=== PATIENT | male | born 1955 | race Caucasian/White ===

== ENCOUNTER 2020-12-14 14:11 | Emergency (ER) | payer OTHER, SELFPAY ==
[2020-12-14] VITALS (10 sets, daily range): BP systolic 148–232; BP diastolic 73–89; PULSE 56–62; RESP 16–22; TEMP 36.7; O2SAT 95–99; BMI 35.2
--- NOTE | 2020-12-14 14:47 | ECG_ITS ---
[facility] Test Date: 2020-12-14 Pat Name: Edgar Warren Department: Room: Gender: Male Telephone Sales Agent: : 1955 Requested By: Berta Wetzel I Order Number: [id number] Reading MD: BRENDEN GUPTA Measurements Intervals [place] Rate: 55 P: 49 RI: 147 QRS: 28 QRSD: 85 T: 65 QT: 397 QTc: 382 Interpretive Statements SINUS BRADYCARDIA No previous ECG available for comparison Electronically Signed On 12-14-2020 19:52:43 COURIER by BRENDEN GUPTA [id number]
--- NOTE | 2020-12-14 16:06 | PC.NURSE ---
PT UDATED ON WAIT AT THIS TIME
--- NOTE | 2020-12-14 16:55 | W.ED.CHESTPA ---
HPI - Chest Pain General: Chief Complaint: Chest Pain Stated Complaint: HEART PALPATATION Time Seen by Provider: 12/14/20 16:46 Source: patient Mode of arrival: ambulatory Limitations: no limitations History of Present Illness: HPI narrative: Patient is a 65-year-old male with a history of hypothyroidism, hypertension who presents to the emergency department with a sensation of skipped heartbeats. May also have some palpitations. He denies any chest pain, difficulty breathing, fever, headache. He went to his PCPs office today and his blood pressure was significantly elevated in the 200s so he was sent here to be seen. He has baseline blood pressure according to the patient is in the 1 teens systolic. Onset (ago): day(s) (1) Associated symptoms: Reports palpitations; Deny abdominal pain, dyspnea, fever(s), nausea or vomiting Review of Systems General: Reports: 10 or more systems reviewed and unremarkable except in HPI and below Const: Denies: fever(s), chills or body aches Eyes: Denies: change in vision or blurry vision ENMT: Denies: throat pain, enlarged tonsils, odynophagia, hoarseness, mouth pain or swelling of lips/tongue Card: Reports: palpitations; Denies: chest pain, irregular heart rhythm, edema or swelling of feet/ankles Resp: Denies: dyspnea, productive cough or non-productive cough GI: Denies: abdominal pain, nausea or vomiting : Denies: flank pain, dysuria, urinary frequency, urinary urgency or urinary hesitancy Musc: Denies: neck pain, back pain or extremity swelling Skin/Breast: Denies: rash, pruritus or erythema Neuro: Denies: headache(s), numbness in extremities or weakness in extremities Endo: Denies: polyuria, polydipsia or tired all the time Physical Exam Const: COMMON NORMALS: no acute distress, average body habitus, patient oriented x3, no limitations, healthy appearing, alert and well nourished Neck/C-Spine: COMMON NORMALS: full ROM, supple, no meningeal signs, no JVD and No carotid bruits Resp: COMMON NORMALS: normal respiratory effort, No retractions, No use of accessory muscles, clear to auscultation bilaterally and percussion normal AUSCULTATION: clear to auscultation bilaterally PERCUSSION: percussion normal Cardio: COMMON NORMALS: no JVD, regular rate, regular rhythm, S1 normal heart sound present, S2 normal heart sound present, No gallops present (Cardio), No clicks present (Cardio), No murmurs present (Cardio), No rub (Cardio) and Peripheral pulses 2+ throughout RATE: regular rate RHYTHM: regular rhythm HEART SOUNDS: S1 normal heart sound present and S2 normal heart sound present PERIPHERAL PULSES: Peripheral pulses 2+ throughout GI: COMMON NORMALS: Normal to inspection, nondistended, normoactive bowel sounds present, Soft to palpation, non-tender, No hepatosplenomegaly present, no masses and no bruits PALPATION: Yes Soft to palpation and Yes No hepatosplenomegaly present Extremity: COMMON NORMALS: normal to inspection, full ROM, capillary refill normal, no calf tenderness and no pedal edema Neuro: COMMON NORMALS: patient oriented x3 SENSORIUM/ORIENTATION: Yes alert MENINGEAL SIGNS: Yes no meningeal signs Skin: COMMON NORMALS: no rashes or lesions noted, no wounds, turgor normal, no jaundice, no petechiae and no mottling GENERAL SKIN EXAM: no rashes or lesions noted and turgor normal Course Reevaluation(s): Reevaluation #1: 65-year-old male who presents to the emergency department with palpitations. He has a history of hypothyroidism and is on levothyroxine. Evaluation in the emergency department was negative for cardiac cause of his symptoms with a negative high-sensitivity troponin x2. His TSH was significantly elevated so the dose of his levothyroxine is increased. Neurontin was increased was about 6 months ago. He has an appointment with him primary care provider in a few days. He will follow-up with her. He voiced understanding and is in agreement with the plan. Time: 20:21 Vital Signs: Vital signs: Vital Signs Temperature 98.1 F 12/14/20 14:24 Pulse Rate 60 12/14/20 21:26 Respiratory Rate 20 H 12/14/20 21:26 Blood Pressure 153/89 12/14/20 21:26 Pulse Oximetry 99 12/14/20 21:26 MDM - Chest Pain MDM Narrative: Medical decision making narrative: 65-year-old male who presents to the emergency department with palpitations. Evaluation in the emergency department shows his hypothyroidism is not well controlled. The dose of his levothyroxine has been increased tonight and he will follow-up with his primary care provider. He has negative high-sensitivity troponin x2. Medical Records: Attestation: I reviewed the patient's medical records. Lab Data: Attestation: I reviewed the patient's lab results. Labs: Lab Results 12/14/20 12/14/20 12/14/20 Range/Units 17:08 17:08 17:08 WBC 7.6 (4.0-10.0) 10^3/ uL RBC 4.98 (4.1-5.3) 10^6/u L Hgb 14.1 (11.7-16.6) g/dL Hct 45.0 (42.0-52.0) % MCV 90.4 (80-94) fL MCH 28.3 (28.0-34.0) pg MCHC 31.3 (30.0-36.0) g/dL RDW 13.7 (12.1-15.1) % Plt Count 232 (130-400) 10^3/c mm MPV 10.7 H (7.4-10.4) fL Neut % (Auto) 72.8 % Lymph % (Auto) 17.7 % [place] % (Auto) 5.9 % Eos % (Auto) 2.1 % Baso % (Auto) 1.2 % Neut # (Auto) 5.55 (1.8-7.7) 10^3/u L Lymph # (Auto) 1.4 (0.8-4.8) 10^3/u L Traverse # (Auto) 0.5 (0.2-0.9) 10^3/u L Eos # (Auto) 0.2 (0.0-0.8) 10^3/u L Baso # (Auto) 0.1 (0.0-0.1) 10^3/u L Nucleated RBC % (a uto) 0 % Nucleated RBCs # 0.0 /100WBC Sodium 138 (136-145) mmol/L Potassium 4.3 (3.5-5.1) mmol/L Chloride 101 (98-107) mmol/L Carbon Dioxide 28 (22-29) mmol/L Anion Gap 13.3 (5-19) BUN 14 (8-23) mg/dL Creatinine 1.1 (0.7-1.2) mg/dL GFR Calculation 67.2 L (90-130) mL/min Glucose 141 H (65-115) mg/dL POC Glucose (70-110) mg/dL Calculated Osmolal ity 289 (285-295) mOsm/k g Calcium 9.8 (8.5-10.5) mg/dL Total Bilirubin 0.4 (0.15-1.2) mg/dL AST 21 (0-40) U/L ALT 23 (0-41) U/L Alkaline Phosphata se 45 (40-130) IU/L Troponin T Baselin e 13 (0-15) ng/L Troponin T 120 Min [place] (0-15) ng/L Delta Troponin T (0-10) ABS# Total Protein 7.0 (6.6-8.7) g/dL Albumin 4.5 (3.5-5.2) g/dL Globulin 2.5 (1.3-4.6) g/dL TSH 11.77 H (0.27-4.20) uIU/ mL 12/14/20 12/14/20 Range/Units 19:29 19:30 WBC (4.0-10.0) 10^3/ uL RBC (4.1-5.3) 10^6/u L Hgb (11.7-16.6) g/dL Hct (42.0-52.0) % MCV (80-94) fL MCH (28.0-34.0) pg MCHC (30.0-36.0) g/dL RDW (12.1-15.1) % Plt Count (130-400) 10^3/c mm MPV (7.4-10.4) fL Neut % (Auto) % Lymph % (Auto) % [place]verse % (Auto) % Eos % (Auto) % Baso % (Auto) % Neut # (Auto) (1.8-7.7) 10^3/u L Lymph # (Auto) (0.8-4.8) 10^3/u L Traverse # (Auto) (0.2-0.9) 10^3/u L Eos # (Auto) (0.0-0.8) 10^3/u L Baso # (Auto) (0.0-0.1) 10^3/u L Nucleated RBC % (a uto) % Nucleated RBCs # /100WBC Sodium (136-145) mmol/L Potassium (3.5-5.1) mmol/L Chloride (98-107) mmol/L Carbon Dioxide (22-29) mmol/L Anion Gap (5-19) BUN (8-23) mg/dL Creatinine (0.7-1.2) mg/dL GFR Calculation (90-130) mL/min Glucose (65-115) mg/dL POC Glucose 115 H (70-110) mg/dL Calculated Osmolal ity (285-295) mOsm/k g Calcium (8.5-10.5) mg/dL Total Bilirubin (0.15-1.2) mg/dL AST (0-40) U/L ALT (0-41) U/L Alkaline Phosphata se (40-130) IU/L Troponin T Baselin e (0-15) ng/L Troponin T 120 Min [place] 12.30 (0-15) ng/L Delta Troponin T -0.70 L (0-10) ABS# Total Protein (6.6-8.7) g/dL Albumin (3.5-5.2) g/dL Globulin (1.3-4.6) g/dL TSH (0.27-4.20) uIU/ mL EKG Data^: EKG 1: Attestation: I personally reviewed and interpreted this EKG as follows: EKG interpretation date: 12/14/20 EKG interpretation time: 17:42 Prior EKG tracings: not available for review Interpretation: Sinus bradycardia. Heart rates 57 bpm. Normal axis. No ST changes. Discharge Plan Discharge Patient Disposition: Home Clinical Impression: Heart palpitations Hypothyroidism Qualifiers: Hypothyroidism type: unspecified Qualified Code(s): E03.9 - Hypothyroidism, unspecified Hypertension Qualifiers: Hypertension type: essential hypertension Qualified Code(s): I10 - Essential (primary) hypertension Condition: Stable Prescriptions: New levothyroxine 300 mcg tablet 300 mcg PO DAILY Qty: 30 RF: 0 Continued losartan 50 mg tablet 50 mg PO DAILY@08 RF: 0 metformin 500 mg tablet 1,000 mg PO BID@ RF: 0 metoprolol tartrate 100 mg tablet 100 mg PO BID@ RF: 0 milk thistle 175 mg Tablet 175 mg PO QAM RF: 0 omeprazole 40 mg capsule,delayed release(DR/EC) 40 mg PO DAILY@08 RF: 0 aspirin 81 mg Tablet,Delayed Release (Dr/Ec) 81 mg PO DAILY@21 RF: 0 sildenafil 100 mg Tablet 100 mg PO PRN RF: 0 Motion Sickness 50 mg Tablet 50 mg PO BEDTIME RF: 0 ibuprofen 200 mg Tablet 400 mg PO PRN RF: 0 rosuvastatin 20 mg tablet 20 mg PO DAILY@21 RF: 0 vitamins A,C,I-toxa-fqicwd [id number],320-226-200 uiwr-uw-iyyg Capsule 1 cap PO DAILY@08 RF: 0 Discontinued levothyroxine [Euthyrox] 25 mcg tablet 25 mcg PO QAM RF: 0 levothyroxine 200 mcg tablet 200 mcg PO QAM RF: 0 Discharge Orders: Discharge ED (Routine); Ordered 12/14/20 Ordered By: Berta Wetzel Referrals: Flakita Person FNP [Family Provider] - Walt Cardoso MD [Primary Care Provider] - 1-3 days Discharge Diet: Usual diet Discharge Activity: Increase activity as tolerated Patient Instructions: Palpitations (ED), Hypothyroidism (ED) Activity Restrictions/Additional Instructions: Return for any new or worsening symptoms. Stop the current dose of your thyroid medication and start to take the new prescription I gave you. Follow-up with your primary care provider as scheduled. Continue your other medications as prescribed. You may need evaluation by an senior quality assurance specialist if your thyroid is still not under control after this medication increase. Coding Level of Care Code ED Order Management Specialist for Chg Fwd Exam Detailed
--- NOTE | 2020-12-14 17:13 | PC.NURSE ---
patient stated felt heart beat skip, denied any chest pain, dizziness or nausea. no acute distress noted.
[2020-12-14 17:23] LABS: Basophils # 0.1 10^3/uL (0.0-0.1); Basophils % 1.2 %; Eosinophils # 0.2 10^3/uL (0.0-0.8); Eosinophils % 2.1 %; Hemoglobin 14.1 g/dL (11.7-16.6); Lymphocytes # 1.4 10^3/uL (0.8-4.8); Lymphocytes % 17.7 %; Mean Corpuscular HGB Conc 31.3 g/dL (30.0-36.0); Mean Corpuscular Hemoglobin 28.3 pg (28.0-34.0); Mean Corpuscular Volume 90.4 fL (80-94); Mean Platelet Volume 10.7 fL (7.4-10.4); Monocytes # 0.5 10^3/uL (0.2-0.9); Monocytes % 5.9 %; Neutrophils # 5.55 10^3/uL (1.8-7.7); Neutrophils % 72.8 %; Nucleated Red Blood Cells % 0 %; Platelet Count 232 10^3/cmm (130-400); Red Blood Count 4.98 10^6/uL (4.1-5.3); Red Cell Distribution Width 13.7 % (12.1-15.1); White Blood Count 7.6 10^3/uL (4.0-10.0)
[2020-12-14 17:48] LABS: Troponin(5th) Baseline 13 ng/L (0-15)
[2020-12-14 18:07] LABS: Alanine Aminotransferase 23 U/L (0-41); Albumin Level 4.5 g/dL (3.5-5.2); Alkaline Phosphatase 45 IU/L (40-130); Anion Gap 13.3 (5-19); Aspartate Amino Transferase 21 U/L (0-40); Blood Urea Nitrogen 14 mg/dL (8-23); Calcium 9.8 mg/dL (8.5-10.5); Carbon Dioxide 28 mmol/L (22-29); Chloride 101 mmol/L (98-107); Globulin 2.5 g/dL (1.3-4.6); Glomerular Filtration Rate 67.2 mL/min (90-130); Glucose 141 mg/dL (65-115); Osmolality Calculated 289 mOsm/kg (285-295); Potassium 4.3 mmol/L (3.5-5.1); Sodium 138 mmol/L (136-145); Thyroid Stimulating Hormone 11.77 uIU/mL (0.27-4.20); Total Bilirubin 0.4 mg/dL (0.15-1.2)
[2020-12-14 19:34] LABS: Glucose Point of Care 115 mg/dL (70-110)
--- NOTE | 2020-12-14 20:47 | ECG_ITS ---
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
== END 2020-12-14 21:15 | disposition home or self-care (01) ==
PROVIDERS: Emergency Provider Family Medicine; Family Provider Nurse Practitioner Family; PCP Family Medicine
DX: R00.2 Palpitations (principal); E03.9 Hypothyroidism, unspecified; I10 Essential (primary) hypertension; Z79.82 Long term (current) use of aspirin; Z79.84 Long term (current) use of oral hypoglycemic drugs
CPT/HCPCS: 36416; 80053; 82962; 84443; 84484; 85025; 93005; 99283

== ENCOUNTER 2025-03-02 06:43 | Outpatient (CLI) | payer MEDICARE, SELFPAY ==
--- NOTE | 2025-03-02 06:51 | CT_ITS ---
WS: [id number] LDCT LUNG CANCER SCREENING TECHNIQUE: Noncontrast CT of the chest with coronal and sagittal reformatted images. CLINICAL INFORMATION: HX OF TOBACCO USE COMPARISON: None. DLP: 121.80 mGy.cm DIvol: Mean CTDIvol: 3.20 (mGy) All CT scans at [facility] use at least one of these dose optimization techniques: automated exposure control; mA and/or kV adjustment per patient size (includes targeted exams where dose is matched to clinical indication); or iterative reconstruction. FINDINGS: Calcified granuloma RIGHT lower lobe. Tiny noncalcified nodule LEFT upper lobe. No other suspicious pulmonary parenchymal abnormalities. Aortic calcification. Normal caliber thoracic aorta. Dense coronary calcification. No mediastinal or hilar lymphadenopathy. Calcified subcarinal and RIGHT hilar lymph nodes. No axillary lymphadenopathy. Moderate thoracic kyphosis. LEFT adrenal nodule measuring 2.1 cm likely adrenal adenoma. Splenic granulomas. CT/CT lung screening [id number] IMPRESSION: LUNG-RADS: 2-Benign Appearance or Behavior FOLLOW UP: 12 Month: Continue annual screening with LDCT
== END 2025-03-02 06:44 | disposition home or self-care (01) ==
PROVIDERS: PCP Family Medicine; Visit Provider Nurse Practitioner Family
DX: Z12.2 Encounter for screening for malignant neoplasm of respiratory organs (principal); Z87.891 Personal history of nicotine dependence; J84.10 Pulmonary fibrosis, unspecified; I70.0 Atherosclerosis of aorta; I25.10 Atherosclerotic heart disease of native coronary artery without angina pectoris; R59.0 Localized enlarged lymph nodes; M40.294 Other kyphosis, thoracic region; E27.9 Disorder of adrenal gland, unspecified; D73.89 Other diseases of spleen
CPT/HCPCS: 71271